=== PATIENT | female | born 1995 | race Caucasian/White ===

== ENCOUNTER 2024-07-21 10:58 | Emergency (ER) | payer SELFPAY ==
[~2024-07-21] VITALS: Ht 167.6 cm
[2024-07-21] MEDS ORDERED: AMOX-CLAV 875-1 EACH PO (12:24)
== END 2024-07-21 12:29 | disposition home or self-care (01) ==
LOC: ED 10:58
DX: O26.893 Other specified pregnancy related conditions, third trimester (principal); L03.116 Cellulitis of left lower limb; Z3A.40 40 weeks gestation of pregnancy